=== PATIENT | female | born 1950 | race Caucasian/White ===

== ENCOUNTER → 2020-10-10 | Outpatient (CLI) | payer MEDICARE, OTHER ==
[~2020-10-10] MED LIST: NORCO 5-325 TA1 EACH PO
== END ==
LOC: RAD 16:37
DX: R53.83 Other fatigue (principal)
CPT/HCPCS: 71046

== ENCOUNTER 2022-03-25 12:31 | Emergency (ER) | payer MEDICARE ==
[2022-03-25] MEDS ORDERED: CYCLOBENZAPRINE10 MG PO (14:23)
== END 2022-03-25 14:19 | disposition home or self-care (01) ==
LOC: ER1 12:31
DX: M79.89 Other specified soft tissue disorders (principal); W01.10XA Fall on same level from slipping, tripping and stumbling with subsequent striking against unspecified object, initial encounter
CPT/HCPCS: 73630; 99283